=== PATIENT | male | born 1950 | race Native Hawaiian/Other Pacific Islander ===

== ENCOUNTER 2017-09-06 11:59 | Outpatient (CLI) | payer BC | END 2017-09-06 19:50 | disposition home or self-care (01) | LOC: RAD 11:59 | DX: M25.561 Pain in right knee (principal); M25.562 Pain in left knee; M25.551 Pain in right hip; M25.552 Pain in left hip ==

== ENCOUNTER 2017-09-27 11:15 | Outpatient (CLI) | payer BC | END 2017-09-27 19:46 | disposition home or self-care (01) | LOC: RAD 11:15 | DX: M54.5 Low back pain (principal) ==

== ENCOUNTER 2017-11-10 08:33 | Outpatient (CLI) | payer BC ==
[2017-11-10 09:39] LABS: POTASSIUM 4.4 mmol/L (3.6-5.2)
== END 2017-11-10 23:59 | disposition home or self-care (01) ==
LOC: LABW 08:33
PROVIDERS: Physician Assistant
DX: E78.2 Mixed hyperlipidemia (principal); R94.39 Abnormal result of other cardiovascular function study
CPT/HCPCS: 36415; 80053; 80061; 82248

== ENCOUNTER 2019-09-17 10:27 | Emergency (ER) | payer BC ==
[~2019-09-17] VITALS: Ht 167.6 cm; Wt 90.7 kg
[2019-09-17 10:41] VITALS: BP 162/78; TEMP 99.1
== END 2019-09-17 12:39 | disposition home or self-care (01) ==
LOC: ED 10:27
DX: R07.89 Other chest pain (principal); R07.81 Pleurodynia; S22.42XA Multiple fractures of ribs, left side, initial encounter for closed fracture; W18.2XXA Fall in (into) shower or empty bathtub, initial encounter; Y92.89 Other specified places as the place of occurrence of the external cause
CPT/HCPCS: 96372; 99283; J1885